=== PATIENT | male | born 1985 | race Caucasian/White ===

== ENCOUNTER 2023-10-30 15:11 | Emergency (ER) | payer SELFPAY ==
[2023-10-30 15:22] VITALS: BP 161/97
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
== END 2023-10-30 17:20 | disposition home or self-care (01) ==
LOC: EMR 15:11
PROVIDERS: EMERGENCY PHYSICIAN Emergency Medicine; FAMILY PHYSICIAN Physician Assistant Medical
DX: S80.01XA Contusion of right knee, initial encounter (principal); M25.552 Pain in left hip; M25.551 Pain in right hip; V23.49XA Other motorcycle driver injured in collision with car, pick-up truck or van in traffic accident, initial encounter
CPT/HCPCS: 99284; 72170; 73552; 73564